=== PATIENT | female | born 2000 | race Two or more races ===

== ENCOUNTER 2024-07-02 19:02 | Emergency (ER) | payer MEDICAID, OTHER ==
[~2024-07-02] VITALS: Ht 167.6 cm; Wt 61.2 kg
[2024-07-02] MEDS ORDERED: PREN-96 PO (20:37)
[2024-07-02] MEDS ORDERED: FERR1TAB31 PO (20:38)
[2024-07-02] MEDS: LACTATED RINGER'S 1,000 ML IV ONE (20:59)
[2024-07-02] MEDS: ONDANSETRON HCL 4 MG/2 ML VIAL IV ONE (20:59)
[2024-07-02 21:15] LABS: Urine Bacteria FEW /hpf (None Seen); Urine Blood TRACE /uL (Negative); Urine Clarity Turbid (Clear); Urine Color Yellow (Yellow); Urine Mucus FEW (None Seen); Urine Protein, UAD 1+ (Negative); Urine Specific Gravity 1.024 (1.001-1.035); Urine Squamous Epithelial Cell MOD /hpf (<5); Urine Urobilinogen Normal (Negative); Urine WBC 211 /HPF (0-5); Urine pH 5.5 (5.0-9.0)
[2024-07-02] MEDS: D5W/LACTATED RINGERS 1,000 ML IV ONE (21:20)
[2024-07-02] MEDS: TERBUTALINE SULFATE 1 MG/ML 1ML VIAL SC PRN (21:20)
--- NOTE | 2024-07-02 22:38 | DVH ---
INDICATION: abdominal pain in RUQ/LUQ not related to OB TECHNIQUE: Multiple real-time sonographic images of the abdomen were obtained. COMPARISON: None FINDINGS: 1. Head 2. and body 3. of the pancreas unremarkable 4. . The liver 5. is heterogeneous but 6. normal echotexture. 7. The 8. portal vein flow is hepatopetal 9. . 10. Liver 11. measures approximately 15 cm 12. in span which is normal 13. the 14. common bile duct measures 15. 3 mm 16. in caliber which is normal. 17. Aorta is normal 18. in caliber measuring 19. less than 2 cm 20. . Left kidney 21. measures 12.5 cm in length 22. spleen 23. measures 13 cm 24. in length which is enlarged 25. Right kidney 26. measures 12.2 cm in length 27. and has a slightly dilated 28. pelvis 29. consistent 30. with mild hydronephrosis. 31. Gallbladder is normal. 32. IMPRESSION: 1. Splenomegaly and mild right hydronephrosis.
--- NOTE | 2024-07-02 22:41 | DVH ---
LIMITED SURVEY CLINICAL HISTORY: PTL COMPARISON: None TECHNIQUE: Grayscale imaging of the pelvis is performed FINDINGS: Fetus is in cephalic position. Cervix measures 3.4 cm in length. Placenta is posterior and fundal there may be a circumvallate placenta. Placenta previa not clearly ruled out heart rate is 144 beats per minute. Amniotic fluid index is 24.3 cm with the deepest pocket = 7.53 cm. IMPRESSION: 1. Limited study which shows a possible polyhydramnios and a certain possible circumvallate placenta. In this study placenta previa not ruled out. Follow-up additional study is suggested before delivery .
[2024-07-02] MEDS ORDERED: CEPH250C PO (23:24)
[2024-07-02 23:58] LABS: Vaginal Bacteria Few; Vaginal Clue Cells None Seen; Vaginal Epithelial Cells Many; Vaginal Trichomonas Not Present
--- NOTE | 2024-07-03 00:59 | DVHDS2 ---
Physician Discharge Progress N Final Diagnosis: UTI Problems List: (1) 27 weeks gestation of (2) UTI (urinary tract infection) during Operations or Procedures: Operations or Procedures S: 23 yo F IUP@27.2 weeks presents to triage for N/V/D. Pt reports mild p ain and was told by [facility] urgent care that it may be gallstones but did not do imaging. Pt reports burning in vaginal area and having a UTI for the past two months after having two separate courses of macrobid. Pt denies contractions, VB, leakage of fluid, and endorses +FM. PNC at [facility] in [place] with Dr. Williamson, next appt monday07/05/24. O: VSS. EFM: FHR 150 bpm, moderate variabilty with accels, no decels. [place]: UCs upon arrival after treatment, no UCs noted. Pt denies pain prior to D/C. Terbutaline 0.25 mg SubQ injection given x2 IV LR 1L bolus given x1 D5LR 1L given over 2 hours x1 Zofran 4mg IV push given x1 Laboratory Tests Test 07/02/24 20:00 07/02/24 22:45 Range/Units Urine Color Yellow Yellow Urine Clarity Turbid H Clear Urine pH 5.5 5.0-9.0 Urine Specific [place] 1.024 1.001-1.035 Urine Protein 1+ H Negative Urine Ketones 3+ H Negative Urine Blood Trace H Negative /uL Urine Nitrite 2+ H Negative Urine Bilirubin Negative Negative Urine Urobilinogen Normal Negative mg/dL Urine Leukocyte Esterase 3+ Negative /uL Urine RBC 16 0 - 4 /hpf Urine Microscopic WBC 211 H 0-5 /HPF Urine Squamous Epithelial Cells Mod <5 /hpf Urine Bacteria Few H None Seen /hpf Urine Mucus Few None Seen Urine Glucose Normal Normal mg/dL Vaginal WBC (Wet Prep) Rare Vaginal RBC (Wet Prep) None seen Vaginal Epithelial Cells (Wet Prep) Many Vaginal Bacteria (Wet Prep) Few Vaginal Trichomonas (Wet Prep) Not present Vaginal Yeast (Wet Prep) None seen Vaginal Clue Cells (Wet Prep) None seen A: 23 yo F IUP@27.2 weeks Category I EFM tracing UTI P: D/c home Keflex RX sent take daily probiotic supplement FKC/PTL precautions given and when to return to hospital. Dr. Francis consulted, agrees with POC. Other Interventions Other Interventions [place] [address] Ph: [phone] DIAGNOSTIC IMAGING Diagnostic Imaging Report : [id number] Signed PATIENT: DARRICK FARRIS ACCT: [id number] UNIT: [id number] : 2000 LOC: [facility] ROOM / BED: TRIAGE1 / A AGE / SEX: 23 / F ADM STATUS: ADM IN SERVICE 19 ORDERING PHYSICIAN: CAITLIN DUVAL CNM PROCEDURE(s): ABDC - ABDOMEN COMPLETE SONOGRAM REASON: abdominal pain in RUQ/LUQ not related to OB ORDER NUMBER(s): [id number], ACCESSION NUMBER(s): [id number] INDICATION: abdominal pain in RUQ/LUQ not related to OB TECHNIQUE: Multiple real-time sonographic images of the abdomen were obtained. COMPARISON: None FINDINGS: 1. Head 2. and body 3. of the pancreas unremarkable 4. . The liver 5. is heterogeneous but 6. normal echotexture. 7. The 8. portal vein flow is hepatopetal 9. . 10. Liver 11. measures approximately 15 cm 12. in span which is normal 13. the 14. common bile duct measures 15. 3 mm 16. in caliber which is normal. 17. Aorta is normal 18. in caliber measuring 19. less than 2 cm 20. . Left kidney 21. measures 12.5 cm in length 22. spleen 23. measures 13 cm 24. in length which is enlarged 25. Right kidney 26. measures 12.2 cm in length 27. and has a slightly dilated 28. pelvis 29. consistent 30. with mild hydronephrosis. 31. Gallbladder is normal. 32. IMPRESSION: 1. Splenomegaly and mild right hydronephrosis. ATED BY: GARRETT QUARLES MD DICTATED DATE/TIME: 07/02/242234 SIGNED BY: GARRETT QUARLES MD SIGNED DATE/TIME: 07/02/242234 Consultations: Consultations [address] [address] Ph: [phone] DIAGNOSTIC IMAGING Diagnostic Imaging Report : [id number] Signed PATIENT: DARRICK FARRIS ACCT: [id number] UNIT: [id number] : 2000 LOC: [facility] ROOM / BED: TRIAGE1 / A AGE / SEX: 23 / F ADM STATUS: ADM IN SERVICE 39 ORDERING PHYSICIAN: CAITLIN DUVAL CNM PROCEDURE(s): OBLTD - OBSTERICAL LIMITED REASON: PTL ORDER NUMBER(s): [id number], ACCESSION NUMBER(s): [id number] LIMITED SURVEY CLINICAL HISTORY: PTL COMPARISON: None TECHNIQUE: Grayscale imaging of the pelvis is performed FINDINGS: Fetus is in cephalic position. Cervix measures 3.4 cm in length. Placenta is posterior and fundal there may be a circumvallate placenta. Placenta previa not clearly ruled out heart rate is 144 beats per minute. Amniotic fluid index is 24.3 cm with the deepest pocket = 7.53 cm. IMPRESSION: 1. Limited study which shows a possible polyhydramnios and a certain possible circumvallate placenta. In this study placenta previa not ruled out. Follow-up additional study is suggested before delivery. ATED BY: GARRETT QUARLES MD DICTATED DATE/TIME: 07/02/242238 SIGNED BY: GARRETT QUARLES MD SIGNED DATE/TIME: 07/02/242238 Condition on Discharge: Stable Disposition: Home Discharge Instructions: Diet: Regular Activity: No Restrictions, As Tolerated Medications: see med list Follow Up Care: Specialist: f/u with Dr. Williamson for next appt monday07/05/24. Copies of imaging and UA results given to pt to take to primary OB appt. Discharge Statement: "Patient was advised to return to the ER or call 911 if any headaches, dizziness, shortness of breath, chest pain, abdominal pain, bleeding, fevers, or worsening of medical condition. Patient was counseled about treatment plan, medications, possible side effects, patientverbalized understanding. All questions were answered to the best of my ability. This discharge took greater then 30 minutes in planning, reviewing documentation, counseling the patient, and discussing with other team members." Visit Coding OBGYN Date of Service: Jul 02, 2024 Billing Provider: CAITLIN DUVAL CNM MODELING DIRECTOR Common Visit Codes: [id number] OBS CARE (HIGH) PAMELLA GARCIA STDT MDWF Jul 03, 2024 00:59
== END 2024-07-03 01:06 | disposition home or self-care (01) ==
LOC: ER 19:02 → LDRP 19:26
PROVIDERS: ADMIT Obstetrics & Gynecology; ATTEND Obstetrics & Gynecology
DX: O21.2 Late vomiting of pregnancy (principal); O23.42 Unspecified infection of urinary tract in pregnancy, second trimester; N39.0 Urinary tract infection, site not specified; Z98.890 Other specified postprocedural states; Z79.899 Other long term (current) drug therapy; Z3A.27 27 weeks gestation of pregnancy
CPT/HCPCS: 76700; 76815; 81001; 87210; 94760; 96361; 96372; 96374; G0378; J2405; J3105; 96360